=== PATIENT | female | born 1975 ===

== ENCOUNTER 2019-08-29 09:10 | Outpatient (CLI) | payer OTHER | END 2019-08-29 09:12 | disposition home or self-care (01) | LOC: RAD 09:10 | DX: N92.5 Other specified irregular menstruation (principal); Z01.811 Encounter for preprocedural respiratory examination ==

== ENCOUNTER 2019-09-05 06:00 | Day surgery (SDC) | payer OTHER | END 2019-09-05 13:55 | disposition home or self-care (01) | LOC: CIR.AMB 06:00 | DX: N93.8 Other specified abnormal uterine and vaginal bleeding (principal) ==